=== PATIENT | female | born 1980 | race Caucasian/White ===

== ENCOUNTER 2021-06-23 16:32 | Emergency (ER) | payer MEDICAID ==
[~2021-06-23] VITALS: Ht 170.2 cm; Wt 59.0 kg
--- NOTE | 2021-06-23 17:40 | NUR ---
PT CAME TO ER C/O LOWER ABDOMINAL PAIN X4 DAYS. DENIES N/V, DIARRHEA/CONSTIPATION. AAOX4, BREATHING EVEN AND UNLABORED, PULRSES 2+ BILATERALLY. VS STABLE.
[2021-06-23] MEDS ORDERED: HYDROCODONE/APAP 5/325MG TABLET PO ONE (19:00)
[2021-06-23] MEDS ORDERED: HYDROCODONE/APAP 5/325MG TABLET ONE (19:00)
[2021-06-23 19:04] LABS: BILIRUBIN,URINE NEGATIVE (NEGATIVE); COLOR,URINE YELLOW (YELLOW); LEUKOCYTE ESTERASE ,URINE NEGATIVE (NEGATIVE); NITRITE, URINE NEGATIVE (NEGATIVE); PH,URINE 6.5 (5.0-8.0); PROTEIN,URINE NEGATIVE (NEGATIVE); UGLUCOSE NEGATIVE (NEGATIVE); UROBILINOGEN,URINE 0.2 EU/dL (0.2)
[2021-06-23 19:45] LABS: BACTERIA,URINE None seen /HPF (None Seen); SQUAMOUS EPITHELIAL CELL,UR 0-2 /HPF (None Seen); WBC,URINE 0-2 /HPF (0-3)
[2021-06-23] MEDS ORDERED: HYDR-4209 PO (19:51)
[2021-06-23] MEDS ORDERED: IBUP-1955 PO (19:51)
--- NOTE | 2021-06-23 19:56 | NUR ---
Patient discharged to home in stable condition. Written and verbal after care instructions given. Patient verbalizes understanding of instruction.
[2021-06-23 19:57] VITALS: BP 138/70
== END 2021-06-23 19:58 | disposition home or self-care (01) ==
LOC: ER 16:36
DX: D25.9 Leiomyoma of uterus, unspecified (principal); Z79.899 Other long term (current) drug therapy
CPT/HCPCS: 76856-TC; 81001; 84703-TC